=== PATIENT | male | born 1990 | race Caucasian/White ===

== ENCOUNTER 2017-02-12 14:49 | Inpatient (IN) | payer OTHER ==
[~2017-02-12] VITALS: Ht 165.1 cm; Wt 143.0 kg
[~2017-02-12 14:49] MED LIST: Z.0.NO CURRENT MEDS
[2017-02-12] MEDS ORDERED: IOHEXOL 350 MG/ML 10 ML VIAL (for RAD DIAG) IVCONTRAST ONE (14:50)
[2017-02-12 14:52] VITALS: BP 136/74; PULSE 66; RESP 14; TEMP 98.9; O2SAT 96
[2017-02-12 15:57] LABS: BASOPHIL % 0.2 % (0.0-2.0); EOSINOPHIL % 0.4 % (0.0-4.0); HEMATOCRIT 43.6 % (39.0-51.0); HEMO FLAGS DIFF FINAL; LYMPH % 4.9 % (9.0-44.0); LYMPHOCYTE # 0.4 TH/MM3 (1.0-4.8); MEAN CORPUSCULAR HEMOGLOBIN 29.4 PG (27.0-34.0); MEAN CORPUSCULAR HGB CONC 33.4 % (32.0-36.0); NEUT % 89.5 % (16.0-70.0); PLATELET COUNT 168 TH/MM3 (150-450); RED BLOOD COUNT 4.95 MIL/MM3 (4.50-5.90); RED CELL DISTRIBUTION WIDTH 14.3 % (11.6-17.2); WHITE BLOOD COUNT 8.9 TH/MM3 (4.0-11.0)
[2017-02-12 16:21] LABS: ANION GAP 9 MEQ/L (5-15); AST (GOT) 593 U/L (15-37); BICARBONATE 25.5 MEQ/L (21.0-32.0); BLOOD UREA NITROGEN 5 MG/DL (7-18); CHLORIDE 105 MEQ/L (98-107); POTASSIUM 3.6 MEQ/L (3.5-5.1); SODIUM (NA) 139 MEQ/L (136-145)
[2017-02-12 16:24] LABS: ALKALINE PHOSPHATASE 155 U/L (45-117); ALT (GPT) 572 U/L (12-78); TOTAL BILIRUBIN ADULT 2.5 MG/DL (0.2-1.0)
[2017-02-12 17:02] VITALS: BP 165/92; PULSE 75; RESP 15; O2SAT 99
[2017-02-12] MEDS ORDERED: SODIUM CHLOR 0.9% 1000 ML INJ 1,000 ML IV SCH (17:02)
[2017-02-12 17:12] VITALS: BP 165/92; PULSE 66; RESP 15; O2SAT 99
[2017-02-12] MEDS ORDERED: ONDANSETRON HCL 4 MG/2 ML VIAL IVP ONE (17:15)
[2017-02-12] MEDS ORDERED: MORPHINE SULFATE 4 MG/ML INJ IV PUSH ONE (17:15)
[2017-02-12] MEDS ORDERED: SODIUM CHLORIDE 0.9% FLUSH 10 ML FLUSH IV FLUSH PRN ×2 (17:15→19:45)
--- NOTE | 2017-02-12 17:36 | PD ---
HPI Chief Complaint: GI Complaint Time Seen by Provider: 16:46 Travel History International Travel<30 days: No Contact w/Intl Traveler<30days: No Traveled to known affect area: No History of Present Illness HPI 26-year-old male presents to the emergency room for evaluation of epigastric abdominal pain for the past few days. Patient states pain has been subtle until today when it significantly and suddenly increased. He had one episode of nonbloody, nonbilious vomit. Denies fever, chills, and diarrhea. Denies significant alcohol use. He drinks a few shots about once a month. He denies any illicit drug use. He does not smoke. No chronic medical conditions or daily medications. Denies biliary colic. PFSH Past Medical History Medical History: Denies Significant Hx Tetanus Vaccination: > 5 Years Influenza Vaccination: No Past Surgical History Surgical History: No Previous Surgery Social History Alcohol Use: Yes (RARELY) Tobacco Use: No Substance Use: No Allergies-Medications (Allergen,Severity, Reaction): Coded Allergies: No Known Allergies (Verified Allergy, Mild, 02/12/17) Reported Meds & Prescriptions Reported Meds & Active Scripts Active Review of Systems Except as stated in HPI: all other systems reviewed are Neg Physical Exam Narrative GENERAL: Well-nourished, morbidly obese male in no acute distress. Afebrile. Ambulatory. SKIN: Focused skin assessment warm/dry. No icterus. HEAD: Normocephalic. EYES: No scleral icterus. No injection or drainage. NECK: Supple, trachea midline. No JVD or lymphadenopathy. CARDIOVASCULAR: Regular rate and rhythm without murmurs, gallops, or rubs. RESPIRATORY: Breath sounds equal bilaterally. No accessory muscle use. GASTROINTESTINAL: Abdomen soft, nondistended. Mild tenderness to palpation in the epigastric region. No tenderness to palpation of the right upper quadrant. Data Data Last Documented VS Vital Signs Date Time Temp Pulse Resp B/P (MAP) Pulse Ox O2 Delivery O2 Flow Rate FiO2 02/12/17 19:19 98.8 64 20 143/65 (91) 100 Room Air Orders Orders Complete Blood Count With Diff (02/12/17 15:00) Comprehensive Metabolic Panel (02/12/17 15:00) Lipase (02/12/17 15:00) Lactic Acid (02/12/17 17:02) Prothrombin Time / Inr (Pt) (02/12/17 17:02) Act Partial Throm Time (Ptt) (02/12/17 17:02) Ct Abd/Pel W Iv Contrast(Rout) (02/12/17 17:02) Iv Access Insert/Monitor (02/12/17 17:02) Ecg Monitoring (02/12/17 17:02) Oximetry (02/12/17 17:02) Morphine Inj (Morphine Inj) (02/12/17 17:15) Ondansetron Inj (Zofran Inj) (02/12/17 17:15) Sodium Chlor 0.9% 1000 Ml Inj (Ns 1000 M (02/12/17 17:02) Sodium Chloride 0.9% Flush (Ns Flush) (02/12/17 17:15) Iohexol 350 Inj (Omnipaque 350 Inj) (02/12/17 14:50) Famotidine Inj (Pepcid Inj) (02/12/17 19:45) Admit To Inpatient (02/12/17 ) Vital Signs (Adult) Q4H (02/12/17 19:36) Activity Oob Ad Susie (02/12/17 19:36) Intake + Output SAUD.QSHIFT (02/12/17 19:36) Diet Clear Liquid (02/13/17 Breakfast) Sodium Chlor 0.9% 1000 Ml Inj (Ns 1000 M (02/12/17 19:36) Sodium Chloride 0.9% Flush (Ns Flush) (02/12/17 19:45) Sodium Chloride 0.9% Flush (Ns Flush) (02/12/17 21:00) Ondansetron Inj (Zofran Inj) (02/12/17 19:45) Comprehensive Metabolic Panel (02/13/17 06:00) Complete Blood Count With Diff (02/13/17 06:00) Lipase (02/13/17 06:00) Scd Bilateral/Knee High SAUD.BID (02/12/17 19:36) Joe Bilateral/Knee High SAUD.QSHIFT (02/12/17 19:37) Acetaminophen (Tylenol) (02/12/17 19:45) Morphine Inj (Morphine Inj) (02/12/17 19:45) Oxycodone (Roxicodone) (02/12/17 19:45) Docusate Sodium-Senna (Gianna-Colace) (02/12/17 21:00) Magnesium Hydroxide Liq (Milk Of Magnesi (02/12/17 19:45) Sennosides (Senokot) (02/12/17 19:45) Bisacodyl Supp (Dulcolax Supp) (02/12/17 19:45) Lactulose Liq (Lactulose Liq) (02/12/17 19:45) Inpatient Certification (02/12/17 ) Admit Order (Ed Use Only) (02/12/17 19:52) Labs Laboratory Tests Test 02/12/17 15:30 02/12/17 17:15 White Blood Count 8.9 TH/MM3 Red Blood Count 4.95 MIL/MM3 Hemoglobin 14.5 GM/DL Hematocrit 43.6 % Mean Corpuscular Volume 88.0 FL Mean Corpuscular Hemoglobin 29.4 PG Mean Corpuscular Hemoglobin Concent 33.4 % Red Cell Distribution Width 14.3 % Platelet Count 168 TH/MM3 Mean Platelet Volume 10.9 FL Neutrophils (%) (Auto) 89.5 % Lymphocytes (%) (Auto) 4.9 % Monocytes (%) (Auto) 5.0 % Eosinophils (%) (Auto) 0.4 % Basophils (%) (Auto) 0.2 % Neutrophils # (Auto) 8.0 TH/MM3 Lymphocytes # (Auto) 0.4 TH/MM3 Monocytes # (Auto) 0.4 TH/MM3 Eosinophils # (Auto) 0.0 TH/MM3 Basophils # (Auto) 0.0 TH/MM3 CBC Comment DIFF FINAL Differential Comment Blood Urea Nitrogen 5 MG/DL Creatinine 0.88 MG/DL Random Glucose 108 MG/DL Total Protein 7.6 GM/DL Albumin 3.9 GM/DL Calcium Level 8.9 MG/DL Alkaline Phosphatase 155 U/L Aspartate Amino Transf (AST/SGOT) 593 U/L Alanine Aminotransferase (ALT/SGPT) 572 U/L Total Bilirubin 2.5 MG/DL Sodium Level 139 MEQ/L Potassium Level 3.6 MEQ/L Chloride Level 105 MEQ/L Carbon Dioxide Level 25.5 MEQ/L Anion Gap 9 MEQ/L Lipase 42428 U/L Prothrombin Time 10.6 SEC Prothromb Time International Ratio 1.0 RATIO Activated Partial Thromboplast Time 22.3 SEC Lactic Acid Level 1.2 mmol/L MDM Medical Decision Making Medical Screen Exam Complete: Yes Emergency Medical Condition: Yes Medical Record Reviewed: Yes Differential Diagnosis Pancreatitis, biliary colic, choledocholithiasis, cholecystitis Narrative Course 26-year-old morbidly obese but otherwise healthy male presents to the emergency room for evaluation of epigastric abdominal pain that started a few days ago but worsened acutely today. Patient denies any alcohol use or biliary colic. He had one episode of vomiting. Physical exam reveals tenderness to palpation in the epigastric region. No peritoneal signs. No guarding. Vital signs stable. CBC is unremarkable. CMP is remarkable for elevated liver enzymes. Lipase is 26,320. Lactic acid 1.2. This is acute pancreatitis. Patient will be admitted for further management. I spoke to the hospitalist on-call, Dr. Botello, who agrees to admit this patient to her service. Diagnosis Primary Impression: Pancreatitis Qualified Codes: K85.90 - Acute pancreatitis without necrosis or infection, unspecified Admitting Information Admitting Physician Requests: Admit Scripts No Active Prescriptions or Reported Meds Condition: Stable Maryann Ca Feb 12, 2017 17:36
[2017-02-12 17:41] LABS: APTT (PATIENT) 22.3 SEC (24.3-30.1); PROTHROMBIN TIME - PATIENT 10.6 SEC (9.8-11.6)
--- NOTE | 2017-02-12 18:56 | RADRPT ---
EXAM DATE/TIME: 02/12/2017 18:28 [facility] COMPARISON: No previous studies available for comparison. INDICATIONS : Epigastric pain with vomiting for two days. IV CONTRAST: 95 cc Omnipaque 350 (iohexol) IV ORAL CONTRAST: No oral contrast ingested. RADIATION DOSE: 17.01 CTDIvol (mGy) MEDICAL HISTORY : None SURGICAL HISTORY : None. ENCOUNTER: Initial ACUITY: 2 days PAIN SCALE: 5/10 LOCATION: upper quadrant TECHNIQUE: Volumetric scanning of the abdomen and pelvis was performed. Using automated exposure control and ad justment of the mA and/or kV according to patient size, radiation dose was kept as low as reasonably achievable to obtain optimal diagnostic quality images. DICOM format image data is available electro nically for review and comparison. FINDINGS: LOWER LUNGS: The visualized lower lungs are clear. LIVER: Homogeneous density without lesion. There is no dilation of the biliary tree. A small solitary galls tone within an otherwise normal-appearing gallbladder. SPLEEN: Spleen is enlarged measuring 16 cm in anterior to posterior dimension. PANCREAS: There is stranding of the fat surrounding the pancreatic tail. The pancreas shows some edema within t he pancreatic tail with loss of the normal fat planes. No ductal dilatation. No pseudocyst. No mass. KIDNEYS: Normal in size and shape. There is no mass, stone or hydronephrosis. ADRENAL GLANDS: Within normal limits. VASCULAR: There is no aortic aneurysm. BOWEL/MESENTERY: The stomach, small bowel, and colon demonstrate no acute abnormality. There is no free intraperitone al air or fluid. ABDOMINAL WALL: Within normal limits. RETROPERITONEUM: There is no lymphadenopathy. BLADDER: No wall thickening or mass. REPRODUCTIVE: Within normal limits. INGUINAL: There is no lymphadenopathy or hernia. MUSCULOSKELETAL: Within normal limits for patient age. CONCLUSION: 1. Acute pancreatitis without pseudocyst. 2. Cholelithiasis. 3. Splenomegaly. Jose Khan Jr., MD on February 12, 2017 at 18:52 Board Certified Radiologist. This report was verified electronically.
[2017-02-12 19:19] VITALS: BP 143/65; PULSE 64; RESP 20; TEMP 98.8; O2SAT 100
[2017-02-12] MEDS: SODIUM CHLOR 0.9% 1000 ML INJ 1,000 ML IV SCH (19:36)
--- NOTE | 2017-02-12 19:37 | HHI.HP ---
[facility] No Primary Care Physician Admission Diagnosis Diagnoses: (1) Pancreatitis Diagnosis: Principal (2) Elevated LFTs Diagnosis: Principal (3) HTN (hypertension) Diagnosis: Principal Travel History International Travel<30 Days: No Contact w/Intl Traveler <30 Da: No Traveled to Known Affected Are: No History of Present Illness This is a 26-year-old male with no significant PMH of present the ER with complaints of epigastric pain x3-4 days. States symptoms have gotten progressively worse, associated w/ nausea and one episode of vomiting. Denies fever, chills or diarrhea. On arrival, BP 165/92, HR 75, O2 sat 99% on RA, Afebrile. CBC essentially unremarkable. LFTs elevated. Lipase 26,320. INR 1.0. CT Abd/Pelvis w/ acute necrotizing without pseudocyst, cholelithiasis. S/ p Morphine/Zofran in ER w/ some improvement, however still w/ pain and difficulty taking PO. Review of Systems Except as stated in HPI: all other systems reviewed are Neg ROS: 14 point review of systems otherwise negative. Past Family Social History Past Medical History PMH: None Past Surgical History PAST SURGICAL HISTORY: None Allergies: Coded Allergies: No Known Allergies (Verified Allergy, Mild, 02/12/17) Family History PAST FAMILY HISTORY: Reviewed. No h/o DM or CAD Social History PAST SOCIAL HISTORY: Occasional alcohol. Negative for tobacco or drugs. Physical Exam Vital Signs Vital Signs Date Time Temp Pulse Resp B/P (MAP) Pulse Ox O2 Delivery O2 Flow Rate FiO2 02/12/17 19:19 98.8 64 20 143/65 (91) 100 Room Air 02/12/17 17:12 66 15 165/92 (116) 99 02/12/17 17:02 75 15 165/92 (116) 99 Room Air 02/12/17 14:52 98.9 66 14 136/74 (94) 96 Physical Exam PE: GENERAL: Young white male in no acute distress. HEENT: PERRLA, EOMI. No scleral icterus or conjunctival pallor. No lid lag or facial droop. CARDIOVASCULAR: Regular rate and rhythm. No obvious murmurs to auscultation. No chest tenderness to palpation. RESPIRATORY: No obvious rhonchi or wheezing. Clear to auscultation. Breath sounds equal bilaterally. GASTROINTESTINAL: Abdomen soft, epigastric tenderness to palpation, nondistended. BS normal. MUSCULOSKELETAL: Extremities without clubbing, cyanosis, or edema. No obvious deformities. NEUROLOGICAL: Awake, alert and oriented x4. No focal neurologic deficits. Moving both upper and lower extremities spontaneously. Laboratory Laboratory Tests Test 02/12/17 15:30 02/12/17 17:15 White Blood Count 8.9 Red Blood Count 4.95 Hemoglobin 14.5 Hematocrit 43.6 Mean Corpuscular Volume 88.0 Mean Corpuscular Hemoglobin 29.4 Mean Corpuscular Hemoglobin Concent 33.4 Red Cell Distribution Width 14.3 Platelet Count 168 Mean Platelet Volume 10.9 Neutrophils (%) (Auto) 89.5 Lymphocytes (%) (Auto) 4.9 Monocytes (%) (Auto) 5.0 Eosinophils (%) (Auto) 0.4 Basophils (%) (Auto) 0.2 Neutrophils # (Auto) 8.0 Lymphocytes # (Auto) 0.4 Monocytes # (Auto) 0.4 Eosinophils # (Auto) 0.0 Basophils # (Auto) 0.0 CBC Comment DIFF FINAL Differential Comment Blood Urea Nitrogen 5 Creatinine 0.88 Random Glucose 108 Total Protein 7.6 Albumin 3.9 Calcium Level 8.9 Alkaline Phosphatase 155 Aspartate Amino Transf (AST/SGOT) 593 Alanine Aminotransferase (ALT/SGPT) 572 Total Bilirubin 2.5 Sodium Level 139 Potassium Level 3.6 Chloride Level 105 Carbon Dioxide Level 25.5 Anion Gap 9 Lipase 72743 Prothrombin Time 10.6 Prothromb Time International Ratio 1.0 Activated Partial Thromboplast Time 22.3 Lactic Acid Level 1.2 Result Diagram: 02/12/17 15302/12/171529 Caprini VTE Risk Assessment Caprini VTE Risk Assessment: No/Low Risk (score <= 1) Caprini Risk Assessment Model Point Value = 1 Point Value = 2 Point Value = 3 Point Value = 5 Age 41-60 Minor surgery BMI > 25 kg/m2 Swollen legs Varicose veins or History of unexplained or recurrent spontaneous Oral contraceptives or hormone replacement Sepsis (< 1 month) Serious lung disease, including pneumonia (< 1 month) Abnormal pulmonary function Acute myocardial infarction Congestive heart failure (< 1 month) History of inflammatory bowel disease Medical patient at bed rest Age 61-74 Arthroscopic surgery Major open surgery (> 45 min) Laparoscopic surgery (> 45 min) Malignancy Confined to bed (> 72 hours) Immobilizing plaster cast Central venous access Age >= 75 History of VTE Family history of VTE Factor V Leiden Prothrombin [id number] Lupus anticoagulant Anticardiolipin antibodies Elevated serum homocysteine Heparin-induced thrombocytopenia Other congenital or acquired thrombophilia Stroke (< 1 month) Elective arthroplasty Hip, pelvis, or leg fracture Acute spinal cord injury (< 1 month) Prophylaxis Regimen Total Risk Factor Score Risk Level Prophylaxis Regimen 0-1 Low Early ambulation 2 Moderate Order ONE of the following: *Sequential Compression Device (SCD) *Heparin 5000 units SQ BID 3-4 Higher Order ONE of the following medications: *Heparin 5000 units SQ TID *Enoxaparin/Lovenox 40 mg SQ daily (WT < 150 kg, CrCl > 30 mL/min) *Enoxaparin/Lovenox 30 mg SQ daily (WT < 150 kg, CrCl > 10-29 mL/min) *Enoxaparin/Lovenox 30 mg SQ BID (WT < 150 kg, CrCl > 30 mL/min) AND/OR *Sequential Compression Device (SCD) 5 or more Highest Order ONE of the following medications: *Heparin 5000 units SQ TID (Preferred with Epidurals) *Enoxaparin/Lovenox 40 mg SQ daily (WT < 150 kg, CrCl > 30 mL/min) *Enoxaparin/Lovenox 30 mg SQ daily (WT < 150 kg, CrCl > 10-29 mL/min) *Enoxaparin/Lovenox 30 mg SQ BID (WT < 150 kg, CrCl > 30 mL/min) AND *Sequential Compression Device (SCD) Assessment and Plan Problem List: (1) Pancreatitis ICD Code: K85.90 - Acute pancreatitis without necrosis or infection, unspecified Status: Acute (2) Elevated LFTs ICD Code: R79.89 - Other specified abnormal findings of blood chemistry (3) HTN (hypertension) ICD Code: I10 - Essential (primary) hypertension Assessment and Plan A/P: 1. Pancreatitis: Acute onset of epigastric abdominal pain with associated nausea/vomiting, Lipase 26,320, CT Abd/Pelvis w/ acute pancreatitis, images reviewed by me. Diet as tolerated, Pepcid IV, analgesics/antiemetics as needed , repeat Lipase in am. Check Hgb A1c, Lipid Profile and TSH. 2. Elevated LFTs: Secondary to above, CT Abd/Pelvis w/ cholelithiasis, Total Bili 2.5, will repeat labs in am. GI Consult as needed for further eval. 3. HTN: BP 160's on arrival, likely compounded by pain complaints, will monitor, optimize pain control. 4. DVT Prophylaxis: SCD/Teds. 5. Social work for d/c planning as needed. 6. Case discussed w/ ER physician at length. Physician Certification 2 Midnight Certification Type: Admission for Inpatient Services Order for Inpatient Services The services are ordered in accordance with Medicare regulations or non- Medicare payer requirements, as applicable. In the case of services not specified as inpatient-only, they are appropriately provided as inpatient services in accordance with the 2-midnight benchmark. Estimated LOS (days): 2 days is the estimated time the patient will need to remain in the hospital, assuming treatment plan goals are met and no additional complications. Post-Hospital Plan: Not yet determined Problem Qualifiers (1) Pancreatitis: Qualified Codes: K85.90 - Acute pancreatitis without necrosis or infection, unspecified Lakshmi Botello MD Feb 12, 2017 19:37
[2017-02-12] MEDS ORDERED: LACTULOSE SYRUP 20 GM/30 ML CUP PO PRN (19:45)
[2017-02-12] MEDS ORDERED: MAGNESIUM HYDROXIDE SUSP 30 ML CUP PO PRN (19:45)
[2017-02-12] MEDS ORDERED: BISACODYL 10 MG SUPP RECTAL PRN (19:45)
[2017-02-12] MEDS ORDERED: SENNOSIDES 8.6 MG TAB PO PRN (19:45)
[2017-02-12] MEDS ORDERED: ACETAMINOPHEN 325 MG TAB PO PRN (19:45)
[2017-02-12] MEDS ORDERED: ONDANSETRON HCL 4 MG/2 ML VIAL IVP PRN (19:45)
[2017-02-12] MEDS ORDERED: MORPHINE SULFATE 4 MG/ML INJ IV PUSH PRN (19:45)
[2017-02-12] MEDS: FAMOTIDINE 20 MG/2 ML VIAL IV PUSH SCH (21:19)
[2017-02-12] MEDS: SODIUM CHLORIDE 0.9% FLUSH 10 ML FLUSH IV FLUSH SCH (21:19)
[2017-02-12] MEDS: DOCUSATE SODIUM 50 MG/SENNA 8.6 MG TAB PO SCH (21:19)
[2017-02-12 21:48] VITALS: BP 142/70; PULSE 59; RESP 18; TEMP 96.7; O2SAT 100
[2017-02-12 23:12] VITALS: BP 133/78; PULSE 74; RESP 18; TEMP 96.9; O2SAT 100
[2017-02-13 03:35] VITALS: BP 135/79; PULSE 66; RESP 18; TEMP 97.1; O2SAT 99
[2017-02-13] MEDS: SODIUM CHLOR 0.9% 1000 ML INJ 1,000 ML IV SCH ×2 (04:43→16:51)
[2017-02-13 05:51] LABS: AUTOMATED NEUTROPHIL # 6.4 TH/MM3 (1.8-7.7); BASOPHIL % 0.4 % (0.0-2.0); EOSINOPHIL % 0.6 % (0.0-4.0); HEMATOCRIT 42.7 % (39.0-51.0); HEMO FLAGS DIFF FINAL; LYMPH % 9.8 % (9.0-44.0); LYMPHOCYTE # 0.7 TH/MM3 (1.0-4.8); MEAN CORPUSCULAR HEMOGLOBIN 30.1 PG (27.0-34.0); MEAN CORPUSCULAR HGB CONC 33.4 % (32.0-36.0); MONO % 5.7 % (0.0-8.0); NEUT % 83.5 % (16.0-70.0); PLATELET COUNT 132 TH/MM3 (150-450); RED BLOOD COUNT 4.74 MIL/MM3 (4.50-5.90); WHITE BLOOD COUNT 7.6 TH/MM3 (4.0-11.0)
[2017-02-13 06:18] LABS: ALT (GPT) 547 U/L (12-78); ANION GAP 6 MEQ/L (5-15); AST (GOT) 382 U/L (15-37); BICARBONATE 25.3 MEQ/L (21.0-32.0); BLOOD UREA NITROGEN 5 MG/DL (7-18); CHLORIDE 107 MEQ/L (98-107); POTASSIUM 3.9 MEQ/L (3.5-5.1); SODIUM (NA) 138 MEQ/L (136-145)
[2017-02-13 06:29] LABS: ALKALINE PHOSPHATASE 159 U/L (45-117); HDL CHOLESTEROL 55.7 MG/DL (40.0-60.0); LDL CHOLESTEROL 51 MG/DL (0-99); TOTAL BILIRUBIN ADULT 1.7 MG/DL (0.2-1.0)
[2017-02-13 08:00] VITALS: BP 139/76; PULSE 68; RESP 18; TEMP 98.4; O2SAT 100
[2017-02-13] MEDS: DOCUSATE SODIUM 50 MG/SENNA 8.6 MG TAB PO SCH ×2 (09:14→20:11)
[2017-02-13] MEDS: FAMOTIDINE 20 MG/2 ML VIAL IV PUSH SCH ×2 (09:14→20:11)
[2017-02-13] MEDS: SODIUM CHLORIDE 0.9% FLUSH 10 ML FLUSH IV FLUSH SCH ×2 (09:14→20:12)
--- NOTE | 2017-02-13 09:22 | HHI.PR ---
Subjective Remarks In bed, says he still has abdominal pain however much improved since yesterday. No more nausea, vomiting. No diarrhea or constipation. Denies fever or chills. Objective Vitals Vital Signs Date Time Temp Pulse Resp B/P (MAP) Pulse Ox O2 Delivery O2 Flow Rate FiO2 02/13/17 03:35 97.1 66 18 135/79 (97) 99 02/12/17 23:12 96.9 74 18 133/78 (96) 100 02/12/17 21:48 96.7 59 18 142/70 (94) 100 02/12/17 19:19 98.8 64 20 143/65 (91) 100 Room Air 02/12/17 17:12 66 15 165/92 (116) 99 02/12/17 17:02 75 15 165/92 (116) 99 Room Air 02/12/17 14:52 98.9 66 14 136/74 (94) 96 I/O 02/12/17 02/12/17 02/12/17 02/13/17 02/13/17 02/13/17 07:00 15:00 23:00 07:00 15:00 23:00 Intake Total 1240 ml 1480 ml Output Total 850 ml Balance 1240 ml 630 ml Intake Oral 240 ml 480 ml IV Total 1000 ml 1000 ml Output Urine Total 850 ml # Voids 0 # Bowel Movements 0 0 Result Diagram: 02/13/17 0527 02/13/17 0527 Imaging Last Impressions Abdomen/Pelvis CT 02/12/17 1702 Signed Impressions: Service Date/Time: February 18:28 - CONCLUSION: 1. Acute pancreatitis without pseudocyst. 2. Cholelithiasis. 3. Splenomegaly. Jose Khan Jr., MD Objective Remarks GENERAL: Young white male in no acute distress. CARDIOVASCULAR: Regular rate and rhythm. No obvious murmurs to auscultation. No chest tenderness to palpation. RESPIRATORY: No obvious rhonchi or wheezing. Clear to auscultation. Breath sounds equal bilaterally. GASTROINTESTINAL: Abdomen soft, epigastric tenderness to palpation, nondistended. BS normal. MUSCULOSKELETAL: Extremities without clubbing, cyanosis, or edema. No obvious deformities. NEUROLOGICAL: Awake, alert and oriented x4. No focal neurologic deficits. Moving both upper and lower extremities spontaneously. A/P Problem List: (1) Pancreatitis ICD Code: K85.90 - Acute pancreatitis without necrosis or infection, unspecified Status: Acute (2) Elevated LFTs ICD Code: R79.89 - Other specified abnormal findings of blood chemistry (3) HTN (hypertension) ICD Code: I10 - Essential (primary) hypertension Assessment and Plan Pancreatitis: Acute onset of epigastric abdominal pain with associated nausea/ vomiting, Lipase 26,320, CT Abd/Pelvis w/ acute pancreatitis, images reviewed by me. Diet as tolerated, Pepcid IV, analgesics/antiemetics as needed, repeat Lipase trending down. Repeat level in the morning. Hgb A1c, Lipid Profile and TSH pending. Elevated LFTs: Secondary to above, CT Abd/Pelvis w/ cholelithiasis, Total Bili 2.5, will repeat labs in am. GI Consult as needed for further eval. HTN: BP 160's on arrival, likely compounded by pain complaints, will monitor, optimize pain control. DVT Prophylaxis: SCD/Teds. Case management consulted for DC planning as needed. Discussed with the patient,. nurse Problem Qualifiers (1) Pancreatitis: Qualified Codes: K85.90 - Acute pancreatitis without necrosis or infection, unspecified Mia Chandler MD Feb 13, 2017 09:22
[2017-02-13] MEDS ORDERED: INFLUENZA VIRUS VACCINE (QUADRIVALENT) 0.5 ML SYR IM ONE (10:00)
[2017-02-13 12:00] VITALS: BP 143/78; PULSE 70; RESP 18; TEMP 97; O2SAT 98
[2017-02-13 14:18] LABS: HEMOGLOBIN A1a 0.8 %; HEMOGLOBIN A1b 1.4 %; HEMOGLOBIN Ao 87.8 %; HEMOGLOBIN LA1C 1.7 %; HEMOGLOBIN P3 3.1 %
[2017-02-13 16:00] VITALS: BP 144/74; PULSE 94; RESP 18; TEMP 97.6; O2SAT 99
[2017-02-13 20:07] VITALS: BP 142/69; PULSE 94; RESP 22; TEMP 99.8; O2SAT 96
[2017-02-14 00:50] VITALS: BP 155/85; PULSE 68; RESP 16; TEMP 97.1; O2SAT 100
[2017-02-14] MEDS: SODIUM CHLOR 0.9% 1000 ML INJ 1,000 ML IV SCH ×4 (01:19→21:16)
[2017-02-14] MEDS: DOCUSATE SODIUM 50 MG/SENNA 8.6 MG TAB PO SCH ×2 (07:44→21:16)
[2017-02-14] MEDS: SODIUM CHLORIDE 0.9% FLUSH 10 ML FLUSH IV FLUSH SCH ×2 (07:44→21:00)
[2017-02-14] MEDS: FAMOTIDINE 20 MG/2 ML VIAL IV PUSH SCH ×2 (07:44→21:16)
[2017-02-14 08:00] VITALS: BP 137/71; PULSE 73; RESP 18; TEMP 98.9; O2SAT 98
--- NOTE | 2017-02-14 08:26 | HHI.PR ---
Subjective Remarks Still with abdominal pain. No n/v/d/c. Denies chest pain or sob. No fever or chills. Tolerated CLD. Objective Vitals Vital Signs Date Time Temp Pulse Resp B/P (MAP) Pulse Ox O2 Delivery O2 Flow Rate FiO2 02/14/17 08:00 98.9 73 18 137/71 (93) 98 02/14/17 00:50 97.1 68 16 155/85 (108) 100 02/13/17 20:07 99.8 94 22 142/69 (93) 96 02/13/17 16:00 97.6 94 18 144/74 (97) 99 02/13/17 12:00 97.0 70 18 143/78 (99) 98 I/O 02/13/17 02/13/17 02/13/17 02/14/17 02/14/17 02/14/17 07:00 15:00 23:00 07:00 15:00 23:00 Intake Total 1480 ml 960 ml 2152 ml 866 ml Output Total 850 ml 700 ml Balance 630 ml 960 ml 2152 ml 166 ml Intake Oral 480 ml 960 ml IV Total 1000 ml 2152 ml 866 ml Output Urine Total 850 ml 700 ml # Voids 4 0 # Bowel Movements 0 0 0 Result Diagram: 02/13/17 0527 02/13/17526 Imaging Last Impressions Abdomen/Pelvis CT 02/12/171701 Signed Impressions: Service Date/Time: February 18:28 - CONCLUSION: 1. Acute pancreatitis without pseudocyst. 2. Cholelithiasis. 3. Splenomegaly. Jose Khan Jr., MD Objective Remarks GENERAL: Young white male in no acute distress. CARDIOVASCULAR: Regular rate and rhythm. No obvious murmurs to auscultation. No chest tenderness to palpation. RESPIRATORY: No obvious rhonchi or wheezing. Clear to auscultation. Breath sounds equal bilaterally. GASTROINTESTINAL: Abdomen soft, epigastric tenderness to palpation, nondistended. BS normal. MUSCULOSKELETAL: Extremities without clubbing, cyanosis, or edema. No obvious deformities. NEUROLOGICAL: Awake, alert and oriented x4. No focal neurologic deficits. Moving both upper and lower extremities spontaneously. A/P Problem List: (1) Pancreatitis ICD Code: K85.90 - Acute pancreatitis without necrosis or infection, unspecified Status: Acute (2) Elevated LFTs ICD Code: R79.89 - Other specified abnormal findings of blood chemistry (3) HTN (hypertension) ICD Code: I10 - Essential (primary) hypertension Assessment and Plan Pancreatitis: Acute onset of epigastric abdominal pain with associated nausea/ vomiting, Lipase 26,[address] Abd/Pelvis w/ acute pancreatitis, gallstones images reviewed by me. Diet as tolerated, Pepcid IV, analgesics/ antiemetics as needed, repeat Lipase trending down. Repeat level in the morning. Hgb A1c, Lipid Profile and TSH fairly normal doesn't explain Elevated LFTs: Secondary to above, CT Abd/Pelvis w/ cholelithiasis, Total Bili 2.5, will repeat labs in am. Will consult GI for further eval. HTN: BP 160's on arrival, likely compounded by pain complaints, will monitor, optimize pain control. DVT Prophylaxis: SCD/Teds. Case management consulted for DC planning as needed. Discussed with the patient,. nurse Problem Qualifiers (1) Pancreatitis: Qualified Codes: K85.90 - Acute pancreatitis without necrosis or infection, unspecified Mia Chandler MD Feb 14, 2017 08:26
[2017-02-14 12:00] VITALS: BP 123/63; PULSE 82; RESP 18; TEMP 97.8; O2SAT 97
--- NOTE | 2017-02-14 15:32 | PD.CONS ---
HPI History of Present Illness This is a 26 year old male who presented to the ED with c/o progressively worsening epigastric abdominal pain x 4 days with associated nausea [place]. [place] [id number] Abd/Pelvis showed acute pancreatitis without pseudocyst, cholelithiasis, and splenomegaly. No PMH noted. (Radha Bateman) PFSH Past Medical History None Past Surgical History None (Radha Bateman) Coded Allergies: No Known Allergies (Verified Allergy, Mild, 02/12/17) Medications Current Medications Medications (Trade) Dose Ordered Sig/Syd Route PRN Reason Start Time Stop Time Status Last Admin Dose Admin Famotidine (Pepcid Inj) 20 mg Q12H IV PUSH 02/12/17 21:00 02/14/17 07:44 Sodium Chloride 1,000 ml @ 100 mls/hr Q10H IV 02/12/17 19:36 02/14/17 11:36 Sodium Chloride (NS Flush) 2 ml UNSCH PRN IV FLUSH FLUSH AFTER USING IV ACCESS 02/12/17 19:45 Sodium Chloride (NS Flush) 2 ml BID IV FLUSH 02/12/17 21:00 02/14/17 07:44 Ondansetron HCl (Zofran Inj) 4 mg Q6H PRN IVP NAUSEA OR VOMITING 02/12/17 19:45 Acetaminophen (Tylenol) 650 mg Q6H PRN PO FEVER 02/12/17 19:45 Morphine Sulfate (Morphine Inj) 2 mg Q3H PRN IV PUSH Pain 6-10 02/12/17 19:45 Oxycodone HCl (Roxicodone) 5 mg Q4H PRN PO PAIN SCALE 3 TO 5 02/12/17 19:45 02/14/17 09:40 Senna/Docusate Sodium (Gianna-Colace) 1 tab BID PO 02/12/17 21:00 02/14/17 07:44 Magnesium Hydroxide (Milk Of Magnesia Liq) 30 ml Q12H PRN PO Mild constipation 02/12/17 19:45 02/13/17 09:14 Sennosides (Senokot) 17.2 mg Q12H PRN PO Moderate constipation 02/12/17 19:45 Bisacodyl (Dulcolax Supp) 10 mg DAILY PRN RECTAL SEVERE CONSITIPATION 02/12/17 19:45 Lactulose (Lactulose Liq) 30 ml DAILY PRN PO SEVERE CONSITIPATION 02/12/17 19:45 Family History Non contributory Social History Tobacco, denies ETOH, occasional Illicit Drugs, denies (Radha Bateman) Review of Systems Gastrointestinal: COMPLAINS OF: Abdominal pain, Nausea, Vomiting, DENIES: Black stools, Bloody stools, Constipation, Diarrhea, Difficulty Swallowing, Anorexia, Odynophagia, Swelling of Abdomen, Heartburn, Hematemesis (Radha Bateman) GI Exam Vitals I&O Vital Signs Date Time Temp Pulse Resp B/P (MAP) Pulse Ox O2 Delivery O2 Flow Rate FiO2 02/14/17 12:00 97.8 82 18 123/63 (83) 97 02/14/17 08:00 98.9 73 18 137/71 (93) 98 02/14/17 00:50 97.1 68 16 155/85 (108) 100 02/13/17 20:07 99.8 94 22 142/69 (93) 96 02/13/17 16:00 97.6 94 18 144/74 (97) 99 I/O 02/13/17 02/13/17 02/13/17 02/14/17 02/14/17 02/14/17 07:00 15:00 23:00 07:00 15:00 23:00 Intake Total 1480 ml 960 ml 2152 ml 866 ml 1000 ml Output Total 850 ml 700 ml Balance 630 ml 960 ml 2152 ml 166 ml 1000 ml Intake Oral 480 ml 960 ml IV Total 1000 ml 2152 ml 866 ml 1000 ml Output Urine Total 850 ml 700 ml # Voids 4 0 # Bowel Movements 0 0 0 Imaging Last Impressions Abdomen/Pelvis CT 02/12/17 1702 Signed Impressions: Service Date/Time: February 18:28 - CONCLUSION: 1. Acute pancreatitis without pseudocyst. 2. Cholelithiasis. 3. Splenomegaly. Jose Khan Jr., MD Laboratory Test 02/14/17 05:45 Lipase 970 U/L Physical Examination HEENT: Normocephalic; atraumatic; no jaundice. NECK: Neck is supple CHEST: CTA CARDIAC: RRR ABDOMEN: Soft, nondistended, epigastric TTP; no hepatosplenomegaly; bowel sounds are present in all four quadrants. EXTREMITIES: No clubbing, cyanosis, or edema. SKIN: Normal; no rash; no jaundice. [employer]: No focal deficits; alert and oriented times three. (Radha Bateman) Assessment and Plan Plan ASSESSMENT: - Pancreatitis, acute. Associated nausea and vomiting. Lipase [address] Abdomen/Pelvis--1. Acute pancreatitis without pseudocyst. 2. Cholelithiasis 3. Splenomegaly. Lipase trending down, 970 today. Denies further nausea and vomiting. - Cholelithiasis, CT as above. T. Bili 2.5 PLAN: - Clear liquid diet - IV fluids - Monitor labs - Supportive care - Further recommendations to follow based on results of above Patient seen and examined by Dr. Pooel and myself and this note is written on his behalf. (Radha Bateman) Physician Comments Seen and examined, plan as above. Further recommendations to follow. Thank you for the consult. (Andrea Poole MD) Radha Bateman Feb 14, 2017 15:32 Andrea Poole MD Feb 14, 2017 23:13
[2017-02-14 16:00] VITALS: BP 126/67; PULSE 76; RESP 18; TEMP 99.8; O2SAT 97
[2017-02-14 20:13] VITALS: BP 132/65; PULSE 71; RESP 16; TEMP 99.5; O2SAT 100
[2017-02-15 00:10] VITALS: BP 141/75; PULSE 69; RESP 16; TEMP 97.3; O2SAT 100
[2017-02-15] MEDS: SODIUM CHLOR 0.9% 1000 ML INJ 1,000 ML IV SCH (05:55)
[2017-02-15 08:00] VITALS: BP 141/75; PULSE 68; RESP 20; TEMP 98.5; O2SAT 100
--- NOTE | 2017-02-15 08:12 | HHI.PR ---
Subjective Remarks Still will with the abdominal pain, however improved. No nausea or vomiting. No fever or chills. Tolerates clear liquid diet. Objective Vitals Vital Signs Date Time Temp Pulse Resp B/P (MAP) Pulse Ox O2 Delivery O2 Flow Rate FiO2 02/15/17 00:10 97.3 69 16 141/75 (97) 100 02/14/17 20:13 99.5 71 16 132/65 (87) 100 02/14/17 16:00 99.8 76 18 126/67 (86) 97 02/14/17 12:00 97.8 82 18 123/63 (83) 97 I/O 02/14/17 02/14/17 02/14/17 02/15/17 02/15/17 02/15/17 07:00 15:00 23:00 07:00 15:00 23:00 Intake Total 866 ml 1000 ml 1140 ml 1086 ml Output Total 700 ml Balance 166 ml 1000 ml 1140 ml 1086 ml Intake Oral 1140 ml 240 ml IV Total 866 ml 1000 ml 846 ml Output Urine Total 700 ml # Voids 4 1 # Bowel Movements 0 0 Result Diagram: 02/13/17 0527 02/13/1727 Imaging Last Impressions Abdomen/Pelvis CT 02/12/17 1702 Signed Impressions: Service Date/Time: February 18:28 - CONCLUSION: 1. Acute pancreatitis without pseudocyst. 2. Cholelithiasis. 3. Splenomegaly. Jose Khan Jr., MD Objective Remarks GENERAL: Young white male in no acute distress. CARDIOVASCULAR: Regular rate and rhythm. No obvious murmurs to auscultation. No chest tenderness to palpation. RESPIRATORY: No obvious rhonchi or wheezing. Clear to auscultation. Breath sounds equal bilaterally. GASTROINTESTINAL: Abdomen soft, epigastric tenderness to palpation, nondistended. BS normal. MUSCULOSKELETAL: Extremities without clubbing, cyanosis, or edema. No obvious deformities. NEUROLOGICAL: Awake, alert and oriented x4. No focal neurologic deficits. Moving both upper and lower extremities spontaneously. A/P Problem List: (1) Pancreatitis ICD Code: K85.90 - Acute pancreatitis without necrosis or infection, unspecified Status: Acute (2) Elevated LFTs ICD Code: R79.89 - Other specified abnormal findings of blood chemistry (3) HTN (hypertension) ICD Code: I10 - Essential (primary) hypertension Assessment and Plan Pancreatitis: Acute onset of epigastric abdominal pain with associated nausea/ vomiting, Lipase 26,320 on admission. Lipase back to normal. CT Abd/Pelvis w/ acute pancreatitis, gallstones images reviewed by me. Diet as tolerated, Pepcid IV, analgesics/antiemetics as needed, repeat Lipase trending down. Repeat level in the morning. Hgb A1c, Lipid Profile and TSH fairly normal Elevated LFTs: Secondary to above, CT Abd/Pelvis w/ cholelithiasis. Total Bili 2.5, trending down. LFT trending down. Consult GI appreciate recommendations. HTN: BP 160's on arrival, likely compounded by pain complaints, will monitor, optimize pain control. DVT Prophylaxis: SCD/Teds. Case management consulted for DC planning as needed. Discussed with the patient, nurse Problem Qualifiers (1) Pancreatitis: Qualified Codes: K85.90 - Acute pancreatitis without necrosis or infection, unspecified Mia Chandler MD Feb 15, 2017 08:12
[2017-02-15] MEDS ORDERED: OXYC1CAP PO (08:14)
--- NOTE | 2017-02-15 08:15 | HHI.DS ---
Discharge Summary Admission Date Feb 12, 2017 at 19:55 Discharge Date: Feb 15, 2017 Admitting Diagnosis (1) Pancreatitis ICD Code: K85.90 - Acute pancreatitis without necrosis or infection, unspecified Status: Acute (2) Elevated LFTs ICD Code: R79.89 - Other specified abnormal findings of blood chemistry (3) HTN (hypertension) ICD Code: I10 - Essential (primary) hypertension Procedures none Brief History - From Admission This is a 26-year-old male with no significant PMH of present the ER with complaints of epigastric pain x3-4 days. States symptoms have gotten progressively worse, associated w/ nausea and one episode of vomiting. Denies fever, chills or diarrhea. On arrival, BP 165/92, HR 75, O2 sat 99% on RA, Afebrile. CBC essentially unremarkable. LFTs elevated. Lipase 26,320. INR 1.0. CT Abd/Pelvis w/ acute necrotizing without pseudocyst, cholelithiasis. S/ p Morphine/Zofran in ER w/ some improvement, however still w/ pain and difficulty taking PO. CBC/BMP: 02/13/17 0527 02/13/17 0527 Significant Findings Laboratory Tests Test 02/12/17 15:30 02/12/17 17:15 02/13/17 05:27 02/14/17 05:45 Neutrophils (%) (Auto) 89.5 % (16.0-70.0) 83.5 % (16.0-70.0) Lymphocytes (%) (Auto) 4.9 % (9.0-44.0) Neutrophils # (Auto) 8.0 TH/MM3 (1.8-7.7) Lymphocytes # (Auto) 0.4 TH/MM3 (1.0-4.8) 0.7 TH/MM3 (1.0-4.8) Blood Urea Nitrogen 5 MG/DL (7-18) 5 MG/DL (7-18) Random Glucose 108 MG/DL (74-106) Alkaline Phosphatase 155 U/L (45-117) 159 U/L (45-117) Aspartate Amino Transf (AST/SGOT) 593 U/L (15-37) 382 U/L (15-37) Alanine Aminotransferase (ALT/SGPT) 572 U/L (12-78) 547 U/L (12-78) Total Bilirubin 2.5 MG/DL (0.2-1.0) 1.7 MG/DL (0.2-1.0) Lipase 26939 U/L (73-393) 3659 U/L (73-393) 970 U/L (73-393) Activated Partial Thromboplast Time 22.3 SEC (24.3-30.1) Platelet Count 132 TH/MM3 (150-450) Calcium Level 8.2 MG/DL (8.5-10.1) Cholesterol Level 119 MG/DL (120-200) Test 02/15/17 05:37 Imaging Last Impressions Abdomen/Pelvis CT 02/12/17 1702 Signed Impressions: Service Date/Time: February 18:28 - CONCLUSION: 1. Acute pancreatitis without pseudocyst. 2. Cholelithiasis. 3. Splenomegaly. Jose Khan Jr., MD PE at Discharge GENERAL: Young white male in no acute distress. CARDIOVASCULAR: Regular rate and rhythm. No obvious murmurs to auscultation. No chest tenderness to palpation. RESPIRATORY: No obvious rhonchi or wheezing. Clear to auscultation. Breath sounds equal bilaterally. GASTROINTESTINAL: Abdomen soft, epigastric tenderness to palpation, nondistended. BS normal. MUSCULOSKELETAL: Extremities without clubbing, cyanosis, or edema. No obvious deformities. NEUROLOGICAL: Awake, alert and oriented x4. No focal neurologic deficits. Moving both upper and lower extremities spontaneously. Hospital Course Pancreatitis: Acute onset of epigastric abdominal pain with associated nausea/ vomiting, Lipase 26,320 on admission. Lipase back to normal. CT Abd/Pelvis w/ acute pancreatitis, gallstones images reviewed by me. Diet as tolerated, Pepcid IV, analgesics/antiemetics as needed, repeat Lipase trending down and back to normal. Hgb A1c, Lipid Profile and TSH fairly normal Elevated LFTs: Secondary to above, CT Abd/Pelvis w/ cholelithiasis. Total Bili 2.5, trending down. LFT trending down. Consult GI appreciate recommendations. HTN: BP 160's on arrival, likely compounded by pain complaints, will monitor, optimize pain control. DVT Prophylaxis: SCD/Teds. Case management consulted for DC planning as needed. Discussed with the patient, nurse Patient improved cleared by GI for DC. Patient to follow up as OP with PCP and consultants. Pt Condition on Discharge: Stable Discharge Disposition: Discharge Home Discharge Time: > 30 minutes Discharge Instructions DIET: Follow Instructions for: As Tolerated, No Restrictions, Low Fat Diet Activities you can perform: Regular-No Restrictions Follow up Referrals: Appointment for Follow Up - 2 Weeks PCP Follow-up - 2-3 Days New Medications: Oxycodone (Oxycodone) 5 Mg Cap 5 MG PO Q8H PRN for PAIN, #10 CAP 0 Refills Mia Chandler MD Feb 15, 2017 08:15
[2017-02-15] MEDS: SODIUM CHLORIDE 0.9% FLUSH 10 ML FLUSH IV FLUSH SCH (09:00)
[2017-02-15] MEDS: DOCUSATE SODIUM 50 MG/SENNA 8.6 MG TAB PO SCH (09:00)
[2017-02-15] MEDS: FAMOTIDINE 20 MG/2 ML VIAL IV PUSH SCH (09:18)
[2017-02-15 12:00] VITALS: BP 131/77; PULSE 83; RESP 20; TEMP 96.8; O2SAT 96
[2017-02-15 15:48] VITALS: BP 136/72; PULSE 84; RESP 20; TEMP 98.7; O2SAT 96
== END 2017-02-15 16:06 | disposition home or self-care (01) | DRG 439 ==
LOC: NEPD 14:49 → NEDA 19:55 → N06B 21:34
PROVIDERS: ADMIT Hospitalist; ATTEND Hospitalist
DX: K85.90 Acute pancreatitis without necrosis or infection, unspecified (principal); Z68.43 Body mass index [BMI] 50.0-59.9, adult; I10 Essential (primary) hypertension; E66.01 Morbid (severe) obesity due to excess calories; R79.89 Other specified abnormal findings of blood chemistry; R16.1 Splenomegaly, not elsewhere classified; K80.20 Calculus of gallbladder without cholecystitis without obstruction; Z23 Encounter for immunization
CPT/HCPCS: 74177; 80053; 80061; 83036; 83605; 83690; 84443; 85025; 85610; 85730; 90686; 96361; 96374; 96375; J2270; J2405; J7030; Q2038; Q9967